=== PATIENT | female | born 1945 | race Two or more races ===

== ENCOUNTER 2021-10-19 09:55 | Outpatient (CLI) | payer OTHER | END 2021-10-19 10:02 | disposition home or self-care (01) | LOC: RX STUDY 09:55 | PROVIDERS: ATTEND Obstetrics & Gynecology Gynecology | DX: N88.8 Other specified noninflammatory disorders of cervix uteri (principal); N84.0 Polyp of corpus uteri; R92.1 Mammographic calcification found on diagnostic imaging of breast; N60.11 Diffuse cystic mastopathy of right breast; N60.12 Diffuse cystic mastopathy of left breast; E66.3 Overweight; Z80.3 Family history of malignant neoplasm of breast; M81.0 Age-related osteoporosis without current pathological fracture; R31.21 Asymptomatic microscopic hematuria; D25.1 Intramural leiomyoma of uterus ==